=== PATIENT | male | born 1985 | race Asian ===

== ENCOUNTER 2024-12-13 19:23 | Emergency (ER) | payer SELFPAY ==
[2024-12-13 19:25] VITALS: BMI 27.4
--- NOTE | 2024-12-13 20:00 | EKG_ITS ---
[facility] Test Date: 2024-12-13 Pat Name: SAVITA RUBIN Department: Room: - Gender: Male Fre[employer]: : 1985 Requested By: Danilo Deutsch Order Number: [id number] Reading MD: Danilo Deutsch Measurements Intervals Zahl Rate: 79 P: 32 AR: 168 QRS: 49 QRSD: 88 T: 51 QT: 360 QTc: 413 Interpretive Statements SINUS RHYTHM No previous ECG available for comparison /store/S0/[id number]/[id number].pdf
--- NOTE | 2024-12-13 20:00 | PD.EDADULT ---
ED General RME/HPI General Chief complaint: General Adult/Misc Complain Stated complaint: EPISODE OF DIZZINESS, LIGHT HEADED AT WORK Time Seen by Provider: 12/13/24 19:59 Arrival date/time: 12/13/24 19:23 RME / HPI RME / HPI narrative: 39-year-old male with no relevant past medical history comes into the ED with complaints of dizziness and nausea that happened today at work. Patient states that normally where he works his temperatures can go as high as 110 ?F and when he was in this environment he started feeling dizzy and like he was going to pass out and started feeling nauseated afterward. He mentioned that he only drank around 2 bottles of water prior to this and that afterwards he went to cool off with the AC and he became nauseated. Patient also complaining of tunnel vision and feeling of passing out. He denies any palpitations, loss of consciousness, syncope, abdominal pain, vomiting, changes in bowel movement, or burning sensation with urination. Otherwise has no other complaints at this time. Admits smoking cigarettes and marijuana denies any drugs or alcohol. Related Data Home Medications ?Medication ?Instructions ?Recorded ?Confirmed ibuprofen 800 mg tablet 800 mg PO DAILY 02/25/19 02/25/19 Previous Rx's ?Medication ?Instructions ?Recorded acetaminophen 500 mg capsule 1,000 mg (2 x 500 mg) PO Q8HR PRN 02/25/19 pain #60 caps Allergies Allergy/AdvReac Type Severity Reaction Status Date / Time amoxicillin Allergy Severe Anaphylaxis Verified 12/13/24 19:25 Latex, Natural Rubber Allergy Severe Hives Verified 12/13/24 19:25 lidocaine Allergy Severe Hives Verified 12/13/24 19:25 Sulfa (Sulfonamide Allergy Severe Anaphylaxis Verified 12/13/24 19:25 Antibiotics) lactose Allergy Intermediate Diarrhea Verified 12/13/24 19:25 Review of Systems Review of Systems Systems Reviewed: All systems reviewed, normal except as documented Past Medical History Past Medical History Comments PMH COMMENT: PMH: None Social Hx: Admits smoking cigarettes and marijuana, denies any alcohol or other illicit drugs Allergies: Amoxicillin, latex, lidocaine, sulfa, lactose ED Exam Narrative Physical exam: Gen: A&O X 3, NAD HEENT: NCAT, EOMI, Pupils reactive MIRNA, not icteric. External ears normal. No rhinorrhea. slightly dry mucous membranes. Neck: Supple, full range of motion, no observable masses, No meningeal sign. Lungs: No Respiratory distress, clear bilateral. CV: RRR, no murmurs. Abdomen: Soft, nondistended, No rebound tenderness. MSK: No joint swelling, no redness, peripheral pulses presents, lumbar with no edema. Skin: No rashes, petechiae, lesions.. Neuro: No focal neurological deficits appreciated, sensory and motor intact. Psych: Cooperative, appropriate mood and effect. Course Quality Measures none Orders Category Date Time Status EKG (ED ONLY) *Do not use* NOW Care 12/13/24 20:01 Completed Orthostatic Vitals NOW Care 12/13/24 20:07 Active EKG (ED Only) Stat Exams 12/13/24 20:00 Draft CBC [CBC] Stat Lab 12/13/24 21:24 Completed CMP [Comprehensive Metabolic Panel] Stat Lab 12/13/24 21:24 Completed Magnesium Stat Lab 12/13/24 21:24 Completed Troponin I Stat Lab 12/13/24 21:24 Completed Vital Signs Vital signs: Vital Signs Temperature 98.6 F 12/13/24 20:10 Pulse Rate 89 12/13/24 20:10 Respiratory Rate 18 12/13/24 20:10 Blood Pressure 116/76 12/13/24 20:10 Pulse Oximetry (%) 99 12/13/24 20:10 Oxygen Delivery Method Room Air 12/13/24 20:10 Discharge Plan Plan Patient Disposition: HOME (Self Care) Prescriptions/Referrals Prescriptions/Med Rec: No Action ibuprofen 800 mg Tablet 800 mg PO DAILY acetaminophen 500 mg capsule 1,000 mg PO Q8HR PRN (Reason: pain) Qty: 60 0RF Referrals: No Primary/Family,Physician [Primary Care Provider] - In 1 week Problem List Clinical Impression: Dizziness, Nausea, Pre-syncope Patient/Caregiver Discharge Instructions Other Activity Instructions:: Follow-up with primary care physician within 2 to 3 days Recommend oral hydration especially if working in hot environments to avoid dehydration Come back to the ER if symptoms persist or worsen. Education Materials: ED Dizziness, Uncertain Cause Print Language: Slovenian Stand Alone Forms: Precious Award Info., Patient Portal Info Letter MDM Narrative MDM hospital course: Patient was seen and evaluated upon arrival. Diagnostic labs and imaging was ordered. Patient looks nontoxic at this time. Patient's labs came back and were unremarkable and EKG did not show any arrhythmias. Orthostatic vitals were negative. Patient's symptoms likely secondary to dehydration. At this time patient stable enough to be discharged home. Patient agrees with plan. Case disclosed with Attending Dr. Viktor Deutsch PGY2 Disclaimer: Even though this this note was dictated by speech recognition and even though it was carefully revised there may still be minor errors in campaign marketing manager due to voice recognition software.
[2024-12-13 20:10] VITALS: BP 116/76; PULSE 89; RESP 18; TEMP 37; O2SAT 99
[2024-12-13 20:19] VITALS: BP 116/76; BP 121/91; BP 122/83; PULSE 83; PULSE 86; PULSE 87
[2024-12-13 21:54] LABS: Hemoglobin 15.6 g/dL (13.5-16.0); Nucleated Red Blood Cell # 0.00 Thou/mm3 (0.00-0.00); Nucleated Red Blood Cell % 0 /100 WBC (0)
[2024-12-13 22:09] LABS: Basophils # (Auto) 0.1 Thou/mm3 (0.0-0.2); Basophils % (Auto) 1 % (0-2.5); Eosinophils # (Auto) 0.4 Thou/mm3 (0.0-0.5); Eosinophils % (Auto) 4 % (0-10); Hematocrit 46.1 % (41.0-53.0); Immature Granulocytes Auto 0.02 Thou/mm3 (0.00-0.00); Lymphocytes # (Auto) 2.8 Thou/mm3 (1.0-4.8); Lymphocytes % (Auto) 28 % (10-50); Mean Corpuscular HGB Conc 33.8 g/dl (31.0-37.0); Mean Corpuscular Hemoglobin 28.7 pg (25.0-35.0); Mean Corpuscular Volume 85 fL (80-100); Monocytes # (Auto) 0.7 Thou/mm3 (0.0-0.8); Monocytes % (Auto) 7 % (0-12); Neutrophils # (Auto) 5.9 Thou/mm3 (1.8-7.7); Neutrophils % (Auto) 60 % (37-80); Platelet Count 307 Thou/mm3 (140-440); RDW Standard Deviation 40.2 fL (35.1-43.9); Red Blood Count 5.43 Miln/mm3 (4.50-5.90); White Blood Count 9.8 Thou/mm3 (3.8-10.6)
[2024-12-13 22:10] LABS: Alanine Aminotransferase < 7 U/L (10-49); Albumin, Serum 5.0 gm/dL (3.5-5.0); Albumin/Globulin Ratio 1.9 (1.2-2.2); Alkaline Phosphatase 60 U/L (46-116); Anion Gap 6 (7-16); Aspartate Amino Transferase 16 U/L (0-34); BUN/Creatinine Ratio 8 Ratio (12-20); Bilirubin,Total 0.5 mg/dL (0.3-1.2); Blood Urea Nitrogen 8 mg/dL (9-23); Calcium 10.0 mg/dL (8.3-10.6); Calcium (Corrected) 10.0 mg/dL (8.5-10.1); Carbon Dioxide 27.6 mMol/L (20.0-31.0); Chloride 106 mMol/L (98-107); Creatinine (Component) 1.0 mg/dL (0.6-1.3); Estimated Creatinine Clearance 93.8 mL/min (>60); Globulin 2.7 gm/dL (2.3-3.5); Glucose 87 mg/dL (74-106); Magnesium 2.2 mg/dL (1.6-2.6); Osmolality,Calculated 276 (275-295); Potassium 4.2 mMol/L (3.4-5.1); Sodium 140 mMol/L (136-145); Total Protein 7.7 gm/dL (5.7-8.2); Troponin I < 0.002 ng/mL (0.0-0.045); eGFR > 60 See Note
[2024-12-13 23:00] VITALS: RESP 14
== END 2024-12-13 23:01 | disposition home or self-care (01) ==
DX: R42 Dizziness and giddiness (principal); R11.0 Nausea; R55 Syncope and collapse
CPT/HCPCS: 36415; 80053; 83735; 84484; 85025; 93005; 99284